=== PATIENT | female | born 1990 | race Caucasian/White ===

== ENCOUNTER 2017-02-08 04:23 | Emergency (ER) | payer MEDICAID ==
[~2017-02-08] VITALS: Ht 152.4 cm; Wt 50.0 kg
[2017-02-08 04:29] VITALS: Ht 152.4 cm; Wt 50.0 kg
[2017-02-08] MEDS ORDERED: FAMOTIDINE 20 MG INJ IV STA (04:40)
[2017-02-08] MEDS ORDERED: ONDANSETRON 4 MG INJ IV STA (04:40)
[2017-02-08] MEDS ORDERED: SOD CHLORIDE 0.9% 1,000 ML IV STA (04:40)
[2017-02-08] MEDS ORDERED: ONDA4TAB14 PO (05:36)
--- NOTE | 2017-02-08 05:36 | ERD ---
ER Documentation Chief Complaint Date/Time DATE: 02/08/17 TIME: 05:34 Chief Complaint abdominal pain, nausea/vomitting x this evening HPI This 26-year-old female presents to the emergency room with her 9-year-old daughter for evaluation of abdominal pain, nausea and vomiting. This patient as well as her daughter both ate a chicken meal at a restaurant in approximately 2 hours after the a to the start of vomiting. No diarrhea, no fevers. Mother called EMS and both were brought in for evaluation. Mother denies any abdominal pain but does say she has some abdominal cramping at this time. She denies any medical conditions at this time. She denies any aggravating or relieving factors for her symptoms. ROS All systems reviewed and are negative except as per history of present illness. Medications Home Meds No Active Prescriptions or Reported Meds Allergies Allergies: Coded Allergies: No Known Allergy (Unverified , 02/08/17) PMhx/Soc Medical and Surgical Hx: pt denies Medical Hx History of Surgery: Yes (ceseran section) Anesthesia Reaction: No Hx Neurological Disorder: No Hx Respiratory Disorders: No Hx Cardiac Disorders: No Hx Psychiatric Problems: No Hx Miscellaneous Medical Probl: No Hx Alcohol Use: No Hx Substance Use: No Hx Tobacco Use: No Smoking Status: Never smoker Physical Exam Vitals Vital Signs Date Time Temp Pulse Resp B/P Pulse Ox O2 Delivery O2 Flow Rate FiO2 02/08/17 04:29 98.1 87 19 119/88 100 Physical Exam INITIAL VITAL SIGNS: Reviewed by me GENERAL: The patient is well developed and appropriate for usual state of health in no apparent distress HEENT: Dry mucous membranes, pupils equal, round, and reactive to light. EOMI. There is no scleral icterus. NECK: C-spine is soft and supple, there is no meningismus. There is no cervical lymphadenopathy. LUNGS: Clear to auscultation bilaterally. There are no rales, wheezes or rhonchi. HEART: Regular rate and rhythm, no murmurs, clicks, rubs or gallops. ABDOMEN: Soft, non-tender, non-distended. There are bowel sounds in all four quadrants. No rebound or guarding. EXTREMITIES: There is no peripheral cyanosis or edema. No focal swelling or erythema. NEUROLOGICAL: The patient moves all four extremities with 5/5 strength. Cranial nerves II - XII are intact. Normal gait. Alert and oriented SKIN: There is no apparent rash or petechiae. HEME/LYMPHATIC: There is no evidence of excessive bruising or lymphedema. PSYCHIATRIC: The patient does not appear anxious or depressed. Results 24 hrs Current Medications Medications (Trade) Dose Ordered Sig/Ira Route PRN Reason Start Time Stop Time Status Last Admin Dose Admin Sodium Chloride (NS) 1,000 ml @ 1,000 mls/hr Q1H STAT IV 02/08/17 04:40 02/08/17 05:39 02/08/17 04:51 Ondansetron HCl (Zofran Inj) 4 mg ONCE STAT IV 02/08/17 04:40 02/08/17 04:41 DC 02/08/17 04:51 Famotidine (Pepcid Iv) 20 mg ONCE STAT IV 02/08/17 04:40 02/08/17 04:41 DC 02/08/17 04:51 Procedures/MDM This 26-year-old female presents to the ER for evaluation of abdominal cramping , nausea and vomiting. Both her and her daughter ate the same food and both developed gastrointestinal symptoms of nausea and vomiting. The both likely have food poisoning. The patient was actively vomiting when I evaluated her. I did establish an IV, she received Zofran, Pepcid, and 1.5 L of fluid. A pulmonary evaluation she is tolerating p.o. challenge as well as her daughter. There is no sign of hemodynamic instability and patient does not appear toxic at this time. She will be discharged home with a prescription for Zofran. Departure Diagnosis: Primary Impression: Food poisoning Additional Impression: Nausea and vomiting Condition: Stable SHAMAR MURCIA DO Feb 08, 2017 05:35
[2017-02-08] MEDS ORDERED: SOD CHLORIDE 0.9% 500 ML IV STA (05:50)
[2017-02-08 06:01] VITALS: BP 128/71; PULSE 88; RESP 18; TEMP 98.6
== END 2017-02-08 06:18 | disposition home or self-care (01) ==
LOC: E/R 04:23
DX: T62.8X1A Toxic effect of other specified noxious substances eaten as food, accidental (unintentional), initial encounter (principal); R11.2 Nausea with vomiting, unspecified
CPT/HCPCS: J2405; J7030; J7040; Z7610; 96361; 96374; 96375